=== PATIENT | male | born 1965 | race Caucasian/White ===

== ENCOUNTER 2022-04-03 16:56 | Emergency (ER) | payer OTHER ==
[~2022-04-03 16:56] MED LIST: FLOMAX 0.4 MG0.4 MG PO; IBUPROFEN800 MG PO; PERCOCET 5-3251 EACH PO; ZOFRAN4 MG SL
[2022-04-03 18:52] LABS: BASOPHIL 0.3 % (0-2); BILIRUBIN NEGATIVE (NEGATIVE); BLOOD 2+ Ery/uL (NEGATIVE); CLARITY HAZY (CLEAR); COLOR YELLOW (YELLOW); EOSINOPHIL 0.2 % (0-5); GLUCOSE (U) NORMAL (NORMAL); HCT 46.9 % (42.0-52.0); HGB 15.9 g/dl (13.2-18.0); LEUKOCYTES 1+ Leu/uL (NEGATIVE); LYMPHOCYTE 17.9 % (15-48); MCH 32.2 pg (25.0-31.0); MCHC 33.9 g/dL (32.0-36.0); MCV 94.9 fL (78.0-100.0); MONOCYTE 10.2 % (0-12); MPV 10.9 fL (6.0-9.5); NEUTROPHIL 71.1 % (41-80); NITRITE NEGATIVE (NEGATIVE); NRBC 0; PLT 264 K/uL (150-400); PROTEIN TRACE (LOW) mg/dL (NEGATIVE); RBC 4.94 M/uL (4.70-6.00); RDW 13.2 % (11.5-14.0); SPECIFIC GRAVITY 1.015 (1.001-1.030); UROBILINOGEN 0.2 mg/dL (0.2-1.0); WBC 11.7 K/uL (4.0-10.5)
[2022-04-03 19:01] LABS: BACTERIA TRACE
[2022-04-03 19:08] LABS: BUN/CREAT RATIO (CALC) 7.1 RATIO; CREATININE 1.56 mg/dL (0.67-1.17); POTASSIUM 3.7 mmol/L (3.5-5.1)
[2022-04-03] MEDS ORDERED: PERCOCET 7.5/321 TAB PO (20:31)
[2022-04-03] MEDS ORDERED: CIPRO500 MG PO (20:31)
[2022-04-03] MEDS ORDERED: FLOMAX0.4 MG PO (20:31)
== END 2022-04-03 20:48 | disposition home or self-care (01) ==
LOC: FER 16:56
PROVIDERS: Nurse Practitioner Family
DX: N13.2 Hydronephrosis with renal and ureteral calculous obstruction (principal); E78.5 Hyperlipidemia, unspecified; Z88.8 Allergy status to other drugs, medicaments and biological substances; Z79.899 Other long term (current) drug therapy
CPT/HCPCS: 36415; 80048; 81001; 85025; J1885; J2405; J7030

== ENCOUNTER 2022-08-11 18:38 | Emergency (ER) | payer OTHER ==
[~2022-08-11 18:38] MED LIST changes: +CIPRO500 MG PO; +FLOMAX0.4 MG PO; +PERCOCET 7.5/321 TAB PO
[2022-08-11 21:25] LABS: BASOPHIL 0.1 % (0-2); EOSINOPHIL 0 % (0-5); HCT 36.5 % (42.0-52.0); HGB 12.4 g/dl (13.2-18.0); LYMPHOCYTE 8.3 % (15-48); MCH 32.1 pg (25.0-31.0); MCV 94.6 fL (78.0-100.0); MONOCYTE 12.5 % (0-12); MPV 9.7 fL (6.0-9.5); NEUTROPHIL 78.6 % (41-80); NRBC 0; PLT 298 K/uL (150-400); RBC 3.86 M/uL (4.70-6.00); RDW 12.6 % (11.5-14.0); WBC 15.3 K/uL (4.0-10.5)
[2022-08-11 21:40] LABS: ALBUMIN 2.9 g/dL (3.4-5.0); BILIRUBIN - TOTAL 0.4 mg/dL (0.2-1.0); BUN/CREAT RATIO (CALC) 22.1 RATIO; CREATININE 0.86 mg/dL (0.67-1.17); GLOBULIN (CALCULATION) 5.3 g/dL; POTASSIUM 3.7 mmol/L (3.5-5.1); TOTAL PROTEIN 8.2 g/dL (6.4-8.2)
[2022-08-11 21:45] LABS: INR 1.13 (0.9-1.2); PROTHROMBIN TIME 14.2 SECONDS (11.9-13.9)
[2022-08-12] MEDS ORDERED: KEFLEX250 MG PO (00:50)
== END 2022-08-12 01:01 | disposition home or self-care (01) ==
LOC: FER 18:38
PROVIDERS: Emergency Medicine
DX: G89.18 Other acute postprocedural pain (principal); M79.605 Pain in left leg; S80.12XA Contusion of left lower leg, initial encounter; I10 Essential (primary) hypertension
CPT/HCPCS: 36415; 75635; 80053; 85025; 85610; 85730; 87040; 87186; 93971; J0692; J1170; J3370; J7050; Q9967